=== PATIENT | male | born 1985 | race Caucasian/White ===

== ENCOUNTER 2020-11-27 08:04 | Emergency (ER) | payer OTHER, SELFPAY ==
[2020-11-27 08:19] VITALS: BP 123/75; PULSE 75; RESP 16; TEMP 36.6; O2SAT 99
--- NOTE | 2020-11-27 08:19 | ED.GENADULT ---
HPI - General Adult General Stated complaint: skin infection Time Seen by Provider: 11/27/20 08:19 Source: patient, RN notes reviewed (no nurse available at this time) and other (this provider treated patient with product technology scientist) Mode of arrival: ambulatory Limitations: no limitations History of Present Illness HPI narrative: 24-year-old male presents with complaints of redness, warmth, tenderness, and swelling to right forearm for 1 day. Steve reports getting a tattoo on Wednesday11/24/2020 and on 11/26/20 area became irritated and symptoms increased throughout the night. No treatment. Denies radiation of tenderness, redness, or swelling. No exacerbating factors. Denies open areas or drainage. Denies fever or chills. Denies nausea, vomiting, and abdominal pain. Tolerating po intake well. The patient reports he have not been diagnosed with COVID-19. The patient reports he received the [employer] COVID-19 vaccine 2 weeks ago. The patient reports he is not waiting for the results of a COVID-19 lab test. The patient reports he do not have weakness or fatigue. The patient reports he do not have a new or worsening cough or shortness of breath. Denies chest pain. The patient reports he do not have any rhinorrhea, congestion, loss of taste or smell, sore throat, and diarrhea. Denies recent traveling. Denies concerns for COVID-19 or exposures been home with limited outdoor exposure except for essential household needs, work, and return home. At this time, patient is not suspected of having COVID-19 Some parts of this dictation were generated by voice recognition software and may contain typographical and/or grammatical inaccuracies. Related Data Allergies Allergy/AdvReac Type Severity Reaction Status Date / Time No Known Allergies Allergy Unknown Unverified 07/20/16 14:23 Review of Systems Review of Systems: Narrative: CONSTITUTIONAL: Denies fever, chills, sweats. EYES: Denies visual changes, redness, discharge. ENT: Denies rhinorrhea, congestion, sore throat, otalgia. CARDIOVASCULAR: Denies chest pain, palpitations, edema. RESPIRATORY: Denies dyspnea, wheezing, cough. GASTROINTESTINAL: Denies abdominal pain, nausea, vomiting, diarrhea. SKIN: Complains of redness, swelling, warmth, and tenderness to RT forearm. MUSCULOSKELETAL: Denies acute back pain, joint pain, or myalgia. NEUROLOGIC: Denies numbness or focal weakness. PSYCHIATRIC: Denies anxiety or depression. All systems reviewed & are unremarkable except as noted in HPI and below. [facility] Past Medical History Medical History (Updated 11/28/20 @ 00:00 by Peter Viera) Low vitamin B12 level Low vitamin D level Surgical History Surgical History H/O removal of cyst from face H/O wrist surgery Hx of tonsillectomy Family History Family History Father Patient's father is in good health Sibling Patient's sister is in good health Mother Family history of pancreatic cancer Patient's mother is Social History Social History (Updated 11/30/20 @ 08:36 by MAURO Pérez) Smoking status: Current some day smoker Tobacco type: cigarettes and e-cigarettes/vaping Second hand tobacco smoke exposure: No Additional smoking assessment comments: Steve reports smoking black and mild cigars prior to e-cigs Alcohol intake: current Substance use: never Living arrangements: with family Occupation/Education: occupation Gender identity (if verbalized by the patient): Male Sexual Orientation (if Verbalized by the Patient): Straight or Heterosexual Comments At time of signature, agree with nurse past medical, surgical, social, and family history. There is no relevant family history pertinent to the presenting complaint. Exam Narrative: Exam Narrative: GENERAL: This is a well-nourished, well-developed pa
--- NOTE | 2020-11-27 14:34 | PC.NURSE ---
0900-Pt seen by provider and discharged by provider prior to this nurse arrival.
== END 2020-11-27 08:46 | disposition home or self-care (01) ==
PROVIDERS: Emergency Provider Nurse Practitioner Family; PCP Physician Assistant
DX: L03.113 Cellulitis of right upper limb (principal); F17.210 Nicotine dependence, cigarettes, uncomplicated
CPT/HCPCS: 99213; G0463

== ENCOUNTER → 2023-08-17 12:50 | Outpatient (CLI) | payer OTHER, SELFPAY ==
--- NOTE | ~2023-08-17 | MR_ITS ---
EXAMINATION: MR lumbar spine wo con DATE: 08/17/2023 13:26 INDICATION: Low back pain. Other intervertebral disc displacement, lumbar region. TECHNIQUE: Magnetic resonance imaging (MRI) of the lumbar spine was performed without intravenous con trast. Sequences included sagittal T2-weighted FSE, sagittal T2-weighted FS FSE, sagittal T1-weighted FSE, and axial T2-weighted FSE. COMPARISON: None FINDINGS: There is 5 degrees levocurvature of lumbar spine. Vertebral body heights are normal. There is mildly decreased disc height at L4-L5 and L5-S1. The distal spinal cord signal intensity is normal . The conus medullaris is at L1. The following disc levels are specifically discussed: L1-L2: The disc does not extend beyond the endplate margin. There is mild bilateral facet joint osteo arthritis. There is no neural foraminal stenosis. There is no central canal stenosis. L2-L3: The disc does not extend beyond the endplate margin. There is mild bilateral facet joint osteo arthritis. There is no neural foraminal stenosis. There is no central canal stenosis. L3-L4: The disc does not extend beyond the endplate margin. There is mild bilateral facet joint osteo arthritis. There is no neural foraminal stenosis. There is no central canal stenosis. L4-L5: The disc is bulging with superimposed left central extrusion. There is mild bilateral facet deric int osteoarthritis. There is moderate bilateral neural foraminal stenosis. There is severe central ca nal stenosis. L5-S1: The disc is bulging. There is mild bilateral facet joint osteoarthritis. There is no neural fo raminal stenosis. There is mild central canal stenosis. IMPRESSION: 1. Severe spondylosis at L4-L5 and mild spondylosis at other levels. Reviewed, dictated and finalized at location A. [employer]
== END ==
DX: M51.26 Other intervertebral disc displacement, lumbar region (principal); M43.06 Spondylolysis, lumbar region
CPT/HCPCS: 72148

== ENCOUNTER → 2023-08-17 13:22 | Outpatient (CLI) | payer OTHER, SELFPAY ==
--- NOTE | ~2023-08-17 | US_ITS ---
EXAMINATION: US soft tissue upper back DATE: 08/17/2023 13:48 INDICATION: Benign lipomatous neoplasm. TECHNIQUE: Multiple grayscale and Doppler ultrasound images of the back were obtained. COMPARISON: Lumbar spine MRI 08/17/2023 FINDINGS: In the upper back, there is a 4.9 x 1.7 x 4.8 cm subcutaneous cystic mass with thin septati ons and peripheral low level echoes. IMPRESSION: 1. 4.9 cm subcutaneous cystic mass in the upper back, most likely a hematoma or sebaceous cyst. Consi eric MRI without and with contrast. Reviewed, dictated and finalized at location A. PATIENT THERAPIST IMPRESSION: 1. 4.9 cm subcutaneous cystic mass in the upper back, most likely a hematoma or sebaceous cyst. Consider MRI without and with contrast.
== END ==
PROVIDERS: PCP Physician Assistant; Visit Provider Physician Assistant
DX: D17.1 Benign lipomatous neoplasm of skin and subcutaneous tissue of trunk (principal)
CPT/HCPCS: 76604

== ENCOUNTER 2023-11-22 16:18 | Outpatient (CLI) | payer OTHER, SELFPAY ==
[2023-11-22 17:11] LABS: Alanine Aminotransferase 51 U/L (6-50); Albumin Level 4.6 g/dL (3.5-5.1); Alkaline Phosphatase 51 U/L (38-126); Anion Gap 4 mmol/L (8-16); Aspartate Amino Transferase 78 U/L (17-59); Bilirubin,Total 1.1 mg/dL (0.2-1.3); Blood Urea Nitrogen 24 mg/dL (9-20); Calcium 9.7 mg/dL (8.4-10.2); Carbon Dioxide 29 mmol/L (22-30); Chloride 105 mmol/L (98-107); Cholesterol 196 mg/dL (0-200); Estimated Glomerular Filt Rate > 60; Glucose 80 mg/dL (65-110); HDL Direct 59 mg/dL; Sodium 138 mmol/L (137-145); Triglycerides 159 mg/dL (<150)
[2023-11-22 17:22] LABS: LDL Cholesterol Direct 111 mg/dL
[2023-11-22 18:02] LABS: Vitamin D 25 Hydroxy 72.8 ng/mL
== END 2023-11-22 16:19 | disposition home or self-care (01) ==
LOC: ANHLAB 16:19
PROVIDERS: PCP Internal Medicine; Visit Provider Internal Medicine
DX: Z00.00 Encounter for general adult medical examination without abnormal findings (principal); E55.9 Vitamin D deficiency, unspecified; E53.8 Deficiency of other specified B group vitamins; Z13.220 Encounter for screening for lipoid disorders
CPT/HCPCS: 36415; 80053; 80061; 82306; 82607

== ENCOUNTER → 2023-12-14 14:08 | Outpatient (REF) | payer OTHER, SELFPAY | LOC: ANHLAB 14:08 | PROVIDERS: PCP Internal Medicine; Visit Provider Plastic Surgery | DX: R22.2 Localized swelling, mass and lump, trunk (principal) | CPT/HCPCS: 88304 ==